=== PATIENT | female | born 1960 | race Caucasian/White ===

== ENCOUNTER 2017-09-16 05:19 | Inpatient (IN) | payer MEDICAID ==
[~2017-09-16] VITALS: Ht 167.6 cm; Wt 75.9 kg
[2017-09-16 05:56] VITALS: BP 157/102
[2017-09-16] MEDS ORDERED: LACTATED RINGERS 1,000 ML IV SCH (05:56)
[2017-09-16] MEDS ORDERED: TIZA4CAP PO (06:38)
[2017-09-16] MEDS ORDERED: GABA300C10 PO (06:38)
[2017-09-16] MEDS ORDERED: BUPIVACAINE/PF 0.25% ONE (06:46)
[2017-09-16] MEDS ORDERED: BACITRACIN 50,000 UNIT ONE (06:47)
[2017-09-16] MEDS ORDERED: THROMBIN 5,000 UNIT VIAL TP ONE (06:47)
[2017-09-16] MEDS ORDERED: EPINEPHRINE 1 MG/ML, 1ML ONE (06:47)
[2017-09-16] MEDS ORDERED: SCOPOLAMINE PATCH, 1.5MG PATCH.TD72 TD ONE (07:00)
[2017-09-16] MEDS ORDERED: GABAPENTIN 300 MG CAPSULE PO STA (07:00)
[2017-09-16] MEDS ORDERED: PNEUMOCOCCAL 23 VACCINE IM-VACC ONE (07:00)
[2017-09-16] MEDS ORDERED: ACETAMINOPHEN 500 MG TABLET PO ONE (07:00)
[2017-09-16] MEDS ORDERED: FAMOTIDINE 20 MG TABLET PO ONE (07:00)
[2017-09-16] MEDS ORDERED: METOCLOPRAMIDE 10MG TABLET PO ONE (07:00)
[2017-09-16] MEDS ORDERED: TAMSULOSIN 0.4 MG CAP.ER.24H PO ONE (07:00)
[2017-09-16] MEDS ORDERED: BUPIVACAINE/PF 0.5% ONE (07:04)
[2017-09-16] MEDS ORDERED: KETAMINE 10 MG/ML, 20ML ONE (07:06)
[2017-09-16] MEDS ORDERED: PROPOFOL 10 MG/ML, 20ML ONE ×2 (07:09→07:29)
[2017-09-16] MEDS ORDERED: LIDOCAINE 2%, 10ML ONE (07:09)
[2017-09-16] MEDS ORDERED: SUCCINYLCHOLINE 20 MG/ML, 10ML ONE ×2 (07:09→07:29)
[2017-09-16] MEDS ORDERED: ROCURONIUM 10MG/ML,5ML ONE (07:09)
[2017-09-16] MEDS ORDERED: PROPOFOL 50 ML ONE ×3 (07:11→09:01)
[2017-09-16] MEDS ORDERED: MIDAZOLAM 1 MG/ML, 2ML ONE (07:11)
[2017-09-16] MEDS ORDERED: FENTANYL PF 250 MCG/5ML ONE (07:11)
[2017-09-16] MEDS ORDERED: REMIFENTANIL 2 MG ONE (07:12)
[2017-09-16] MEDS ORDERED: EPHEDRINE 50 MG/ML, 1ML ONE (07:29)
[2017-09-16] MEDS ORDERED: PHENYLEPHRINE 10 MG/ML ONE (07:29)
[2017-09-16] MEDS ORDERED: LABETALOL 5MG/ML, 20ML ONE ×2 (07:29→11:16)
[2017-09-16] MEDS ORDERED: ONDANSETRON 2MG/ML, 2ML ONE (07:29)
[2017-09-16] MEDS ORDERED: DEXAMETHASONE 4 MG/ML, 1ML ONE (07:29)
[2017-09-16] MEDS ORDERED: PROPOFOL 10 MG/ML, 50ML ONE (07:29)
[2017-09-16] MEDS ORDERED: CEFAZOLIN 1,000 MG ONE (07:29)
[2017-09-16] MEDS ORDERED: ROCURONIUM 10 MG/ML,10ML ONE (07:29)
[2017-09-16] MEDS ORDERED: BUPIVACAINE/PF 0.5% INJ ONE (08:01)
[2017-09-16] MEDS ORDERED: DIAZEPAM 5 MG/ML, 2ML IVPush PRN (08:30)
[2017-09-16] MEDS ORDERED: PROMETHAZINE 25 MG/ML, 1ML IV PRN (08:30)
[2017-09-16] MEDS ORDERED: OXYcodone 5 MG/5 ML ORAL.SOL UDC PO PRN (08:30)
[2017-09-16] MEDS ORDERED: MEPERIDINE/PF 25MG/0.5ML IVPush PRN (08:30)
[2017-09-16] MEDS ORDERED: ALBUTEROL SULFATE 2.5 MG/3 ML NPPB PRN (08:30)
[2017-09-16] MEDS ORDERED: FENTANYL PF 100 MCG/2ML IV PRN (08:30)
[2017-09-16] MEDS ORDERED: FENTANYL PF 100 MCG/2ML ONE (09:28)
[2017-09-16] MEDS ORDERED: LABETALOL 5MG/ML, 20ML IVPush ONE (11:17)
[2017-09-16] MEDS ORDERED: MORPHINE SULFATE 4 MG/ML, 1ML ONE ×2 (11:17→11:34)
[2017-09-16] MEDS: morphine SULFATE 10 MG/ML, 1ML IV PRN ×4 (11:22→11:53)
[2017-09-16] MEDS ORDERED: OXYcodone 5 MG/5 ML ORAL.SOL UDC ONE (11:34)
[2017-09-16] MEDS ORDERED: TIZANIDINE 4MG TABLET PO PRN (13:00)
[2017-09-16] MEDS ORDERED: DIPHENHYDRAMINE 50 MG/ML, 1ML IVPush PRN (13:30)
[2017-09-16] MEDS ORDERED: HYDROcodone/APAP 5/325 TABLET PO PRN (13:30)
[2017-09-16] MEDS ORDERED: DIPHENHYDRAMINE 50 MG CAPSULE PO PRN (13:30)
[2017-09-16] MEDS ORDERED: PROMETHAZINE 25 MG/ML, 1ML IM PRN (13:30)
[2017-09-16] MEDS ORDERED: LABETALOL 5MG/ML, 20ML IV PRN (13:30)
[2017-09-16] MEDS ORDERED: DIPHENHYDRAMINE 50 MG/ML, 1ML IM PRN (13:30)
[2017-09-16] MEDS ORDERED: BISACODYL 10 MG SUPP PR PRN (13:30)
[2017-09-16] MEDS ORDERED: MAGNESIUM HYDROXIDE 8%, 30ML UDC PO PRN (13:30)
[2017-09-16] MEDS ORDERED: ONDANSETRON 2MG/ML, 2ML IV PRN (13:30)
[2017-09-16] MEDS ORDERED: HYDROmorphone 2MG TABLET PO PRN (13:30)
[2017-09-16] MEDS: LABETALOL 5MG/ML, 20ML IV SCH ×2 (13:30→21:30)
[2017-09-16] MEDS ORDERED: HYDROmorphone 2 MG/ML, 1ML IM PRN (13:30)
[2017-09-16 13:56] VITALS: BP 125/75
[2017-09-16] MEDS: NS + 20MEQ KCL 1,000 ML IV SCH (14:53)
[2017-09-16] MEDS: GABAPENTIN 300 MG CAPSULE PO SCH ×2 (15:53→22:04)
[2017-09-16] MEDS: OXYcodone/APAP 5/325MG TABLET PO PRN (15:53)
[2017-09-16] MEDS: CEFAZOLIN PMX 1GM/50ML 50 ML IVPB SCH ×2 (15:53→23:49)
[2017-09-16 19:28] VITALS: BP 106/70
[2017-09-17 01:22] VITALS: BP 125/69
[2017-09-17] MEDS: OXYcodone/APAP 5/325MG TABLET PO PRN ×2 (03:40→09:35)
[2017-09-17] MEDS: LABETALOL 5MG/ML, 20ML IV SCH (05:30)
[2017-09-17] MEDS: NS + 20MEQ KCL 1,000 ML IV SCH (06:35)
[2017-09-17 07:36] VITALS: BP 174/79
[2017-09-17] MEDS: GABAPENTIN 300 MG CAPSULE PO SCH (08:27)
[2017-09-17] MEDS ORDERED: PNEUMOCOCCAL 23 VACCINE IM-VACC ONE (09:00)
[2017-09-17] MEDS ORDERED: SENNA/DOCUSATE TABLET PO SCH (09:00)
[2017-09-17] MEDS ORDERED: OXYC-302 PO (10:48)
[2017-09-17] MEDS ORDERED: METH750T87 PO (10:49)
[2017-09-17] MEDS ORDERED: ENOXAPARIN 40 MG/0.4 ML SQ SCH (11:00)
== END 2017-09-17 11:10 | disposition home or self-care (01) | DRG 472 ==
LOC: ORIP 05:19 → 4NOR 12:10
PROVIDERS: ADMIT Neurological Surgery; ATTEND Neurological Surgery
PROC: 0RB30ZZ Excision of Cervical Vertebral Disc, Open Approach (ICD-10-PCS; 2017-09-16)
PROC: 0RG20A0 Fusion of 2 or more Cervical Vertebral Joints with Interbody Fusion Device, Anterior Approach, Anterior Column, Open Approach (ICD-10-PCS; principal; 2017-09-16 07:30)
DX: M48.02 Spinal stenosis, cervical region (principal); M47.12 Other spondylosis with myelopathy, cervical region; G96.0 Cerebrospinal fluid leak; M47.22 Other spondylosis with radiculopathy, cervical region
CPT/HCPCS: 72040; 90732; C1713; J0171; J0690; J1100; J2250; J2405; J2704; J3010; J3480; J3490; C1762; J0330; J2270; J2370; J7120